=== PATIENT | female | born 1975 | race American Indian/Alaskan Native ===

== ENCOUNTER 2017-10-30 11:31 | Emergency (ER) | payer MEDICAID ==
[2017-10-30 14:13] LABS: Basophils % (Auto) 0.4 % (0.0-1.8); Eosinophils % (Auto) 0.9 % (0.0-4.3); Hemoglobin 13.2 gm/dl (10.1-14.3); Lymphocytes # (Auto) 1.6 K/mm3 (1.2-5.4); Lymphocytes % (Auto) 33.6 % (13.4-35.0); Mean Corpuscular HGB Conc 33 % (30-34); Mean Corpuscular Hemoglobin 29 pg (28-32); Mean Corpuscular Volume 90 fl (79-97); Monocytes # (Auto) 0.4 K/mm3 (0.0-0.8); Monocytes % (Auto) 7.7 % (0.0-7.3); Platelet Count 210 K/mm3 (140-440); Red Blood Count 4.48 M/mm3 (3.65-5.03); Red Cell Distribution Width 13.6 % (13.2-15.2)
[2017-10-30 14:18] LABS: HCG Qualitative,Urine Negative (Negative)
--- NOTE | 2017-10-30 14:19 | Emergency Department Report ---
- General Chief complaint: Weakness Stated complaint: CHEST PAIN, WEAKNESS Time Seen by Provider: 10/30/17 14:10 Source: patient Mode of arrival: Ambulatory Limitations: No Limitations - History of Present Illness Initial comments: History of lupus with history of fibromyalgia and history of fibroids with prabhu metrorrhagia here with evaluation generalized weakness FOR WEEKS POSSIBLY GETTING WORSE WITH INTERMITTENT CHEST PAINS FOR 8 MONTHS nor exertional symptoms. No tearing pain no cough or fever pain or swelling no no history DVT or PE pain or swelling here for evaluation of intermittent left-sided reproducible chest pain for a months and feeling weak all over for several weeks no headache no stiff neck no fever no cough no abdominal complaints of nausea vomiting or diarrhea no dizziness no syncope no numbness or weakness no gait disturbancesure no speech orsite disturbance -: Gradual, days(s), week(s), month(s) Location: generalized Severity: mild, moderate Consistency: intermittent Associated Symptoms: denies other symptoms, chest pain, myalgias. denies: confusion, dark stools, diaphoresis, dysuria, easy bruising, fever/chills, headaches, loss of appetite, nausea/vomiting, rash, shortness of breath, syncope - Related Data Home Medications Medication Instructions Recorded Confirmed Last Taken Levothyroxine [Synthroid] 50 mcg PO QAM 10/25/13 10/25/13 Unknown Previous Rx's Medication Instructions Recorded Last Taken Type Morphine [Morphine TAB] 15 mg PO Q4HR PRN #30 tablet 10/25/13 Unknown Rx Benzonatate [Tessalon Perles] 100 mg PO Q8HR PRN #15 capsule 06/10/14 Unknown Rx Levofloxacin [Levaquin] 750 mg PO QDAY #7 tablet 06/10/14 Unknown Rx Ondansetron [Zofran Odt] 8 mg PO Q4-6H PRN #15 tab.rapdis 06/10/14 Unknown Rx Amoxicillin [Amoxicillin TAB] 875 mg PO BID #14 tablet 02/18/15 Unknown Rx Fluticasone [Flonase] 1 spray NS QDAY #1 bottle 02/18/15 Unknown Rx guaiFENesin/CODEINE [Robitussin AC] 10 ml PO QHS PRN #50 ml 02/18/15 Unknown Rx predniSONE [Deltasone] 20 mg PO QAM #6 tab 02/18/15 Unknown Rx Ibuprofen [Motrin] 400 mg PO Q8H PRN #15 tablet 10/30/17 Unknown Rx Prednisone 50 mg PO DAILY #5 tablet 10/30/17 Unknown Rx Allergies Allergy/AdvReac Type Severity Reaction Status Date / Time iodine Allergy Angioedema Verified 02/18/15 15:40 latex Allergy Hives Verified 02/18/15 15:40 shellfish derived Allergy Angioedema Verified 02/18/15 15:40 ED Review of Systems ROS: Stated complaint: CHEST PAIN, WEAKNESS Other details as noted in HPI Comment: All other systems reviewed and negative Constitutional: denies: diaphoresis, fever, malaise Eyes: denies: eye discharge, vision change ENT: denies: dental pain, hearing loss, epistaxis Respiratory: denies: shortness of breath, SOB with exertion, SOB at rest, stridor Cardiovascular: chest pain. denies: palpitations, dyspnea on exertion, orthopnea, edema, syncope, paroxysmal nocturnal dyspnea Gastrointestinal: denies: abdominal pain, nausea, vomiting, diarrhea, constipation, hematemesis, melena, hematochezia Genitourinary: denies: frequency, hematuria, discharge Musculoskeletal: arthralgia, myalgia. denies: joint swelling Neurological: weakness. denies: headache, numbness, paresthesias, confusion, abnormal gait, vertigo Hematological/Lymphatic: denies: easy bruising, swollen glands ED Past Medical Hx - Past Medical History Previous Medical History?: Yes Additional medical history: fibramyalgia. lupus. anemia - Surgical History Past Surgical History?: Yes Additional Surgical History: fibroid embolization - Social History Smoking Status: Never Smoker Substance Use Type: Prescribed - Medications Home Medications: Home Medications Medication Instructions Recorded Confirmed Last Taken Type Levothyroxine [Synthroid] 50 mcg PO QAM 10/25/13 10/25/13 Unknown History Morphine [Morphine TAB] 15 mg PO Q4HR PRN #30 tablet 10/25/13 Unknown Rx Benzonatate [Tessalon Perles] 100 mg PO Q8HR PRN #15 capsule 06/10/14 Unknown Rx Levofloxacin [Levaquin] 750 mg PO QDAY #7 tablet 06/10/14 Unknown Rx Ondansetron [Zofran Odt] 8 mg PO Q4-6H PRN #15 tab.rapdis 06/10/14 Unknown Rx Amoxicillin [Amoxicillin TAB] 875 mg PO BID #14 tablet 02/18/15 Unknown Rx Fluticasone [Flonase] 1 spray NS QDAY #1 bottle 02/18/15 Unknown Rx guaiFENesin/CODEINE [Robitussin AC] 10 ml PO QHS PRN #50 ml 02/18/15 Unknown Rx predniSONE [Deltasone] 20 mg PO QAM #6 tab 02/18/15 Unknown Rx Ibuprofen [Motrin] 400 mg PO Q8H PRN #15 tablet 10/30/17 Unknown Rx Prednisone 50 mg PO DAILY #5 tablet 10/30/17 Unknown Rx ED Physical Exam - General Limitations: No Limitations General appearance: alert - Head Head exam: Present: atraumatic, normocephalic - Eye Eye exam: Present: PERRL, EOMI - ENT ENT exam: Present: normal exam, normal orophraynx - Neck Neck exam: Present: normal inspection. Absent: tenderness, meningismus - Respiratory Respiratory exam: Present: normal lung sounds bilaterally. Absent: respiratory distress, wheezes, rales, rhonchi, stridor, chest wall tenderness, accessory muscle use, decreased breath sounds, prolonged expiratory - Cardiovascular Cardiovascular Exam: Present: regular rate, normal rhythm, normal heart sounds. Absent: rubs, gallop - GI/Abdominal GI/Abdominal exam: Present: soft. Absent: distended, tenderness, guarding, rebound, rigid, mass, pulsatile mass - Extremities Exam Extremities exam: Present: normal inspection, full ROM, normal capillary refill. Absent: tenderness, pedal edema, joint swelling, calf tenderness - Back Exam Back exam: Present: normal inspection. Absent: CVA tenderness (L), muscle spasm , paraspinal tenderness, vertebral tenderness - Neurological Exam Neurological exam: Present: alert, oriented X3, CN II-XII intact, normal gait. Absent: motor sensory deficit - Psychiatric Psychiatric exam: Present: normal affect - Skin Skin exam: Present: warm - Assessment Assessment Interval: Baseline - Level of Consciousness 1a. Level of Consciousness: alert - LOC Questions 1b. LOC Questions: answers correctly - LOC Command 1c. LOC Commands: performs tasks correctly - Best Gaze 2. Best Gaze: normal - Visual 3. Visual: no visual loss - Facial Palsy 4. Facial Palsy: normal symmetrical movement - Motor Arm 5b. Motor Arm Right: no drift 5a. Motor Arm Left: no drift - Motor Leg 6a. Motor Leg Left: no drift 6b. Motor Leg Right: no drift - Limb Ataxia 7. Limb Ataxia: absent - Sensory 8. Sensory: normal - Best Language 9. Best Language: no aphasia - Dysarthria 10. Dysarthria: normal - Extinction and Inattention 11. Extinction/Inattention: no abnormality - Scoring Total Score: 0 Stroke Severity: No Stroke Symptoms ED Course Vital Signs 10/30/17 10/30/17 12:05 15:17 Temperature 98.6 F Pulse Rate 74 Respiratory 18 18 Rate Blood Pressure 129/78 O2 Sat by Pulse 98 Oximetry ED Medical Decision Making - Lab Data Result diagrams: 10/30/17 13:58 10/30/17 13:58 - EKG Data -: EKG Interpreted by Ia EKG shows normal: sinus rhythm - EKG Data Interpretation: nonspecific ST-T wave gino 10/30/17 15:25 ischemic changenone acute - Radiology Data Radiology results: report reviewed - Medical Decision Making Laboratory studies unremarkable H&H was normal patient is not chest x- ray is unremarkable troponin is negative, patient says symptoms off and on for weeks EKG was nondiagnostic patient will be discharged with follow-up with her regular doctors for further management of her fibromyalgia and lupus no acute emergent process is identified at this time that would require further evaluation or management such as admission or further testing she is therefore stable for outpatient follow-up;pulses=b, lungs cta, no fever no cough denied any typical mosquito bites denies any headache or stiff neck no rash or photophobia abdomen is soft and nontender Critical care attestation.: If time is entered above; I have spent that time in minutes in the direct care of this critically ill patient, excluding procedure time. ED Disposition Clinical Impression: Weakness, Atypical chest pain Disposition: [id number] TO HOME OR SELFCARE Is pt being admited?: No Condition: Stable Instructions: Chest Pain (ED), Weakness (ED), Fibromyalgia (ED) Additional Instructions: See the doctor listed return if new or alarming symptoms Prescriptions: Ibuprofen [Motrin] 400 mg PO Q8H PRN #15 tablet PRN Reason: Pain, Moderate (4-6) Prednisone 50 mg PO DAILY #5 tablet Referrals: ANA VÁSQUEZ MD [Primary Care Provider] - 3-5 Days Time of Disposition: 15:32
[2017-10-30 14:21] LABS: Bilirubin,Urine NEG (Negative); Blood,Urine NEG (Negative); Color,Urine Yellow (Yellow); Mucus,Urine FEW /HPF; Protein,Urine <15 mg/dL mg/dL (Negative)
[2017-10-30] MEDS ORDERED: TORADOL IM ONE (14:22)
[2017-10-30 14:41] LABS: Alanine Aminotransferase 14 units/L (7-56); BUN/Creatinine Ratio 13; Blood Urea Nitrogen 9 mg/dL (7-17); Calcium 9.3 mg/dL (8.4-10.2); Hemolysis Index 2
--- NOTE | 2017-10-30 15:18 | XRay Report ---
CHEST 2 VIEWS INDICATION: Chest pain. Sickle cell. COMPARISON: 06/10/2014. FINDINGS: PA and lateral chest radiographs demonstrate stable cardiomediastinal silhouette. Clear lungs. Intact bones. CONCLUSION: No acute disease in the chest. Thank you for the opportunity to participate in this patient's care.
[2017-10-30 15:47] VITALS: BP 117/76
== END 2017-10-30 15:46 | disposition home or self-care (01) ==
LOC: ED 11:31
DX: R53.1 Weakness (principal); R07.89 Other chest pain
CPT/HCPCS: 36415; 71046; 80053; 81001; 81025; 84484; 85025; 93005; 93010; 96372; 99284; J1885

== ENCOUNTER 2018-05-24 22:23 | Emergency (ER) | payer MEDICAID ==
--- NOTE | 2018-05-25 00:38 | Emergency Department Report ---
HPI - General Chief Complaint: Earache Time Seen by Provider: 05/24/18 23:41 - HPI HPI: This is 43-year-old female here complaining of bilateral ear pain that is worse on the left assessment ongoing since March. She states that it with her left ear in March and she was given amoxicillin. She states that she got sick with nausea and vomiting while on amoxicillin but finished it. Patient said she went back to ER in [place] because her ear was not better and was given clindamycin and assist that antibiotic. She is coming in tonight because now her right ear is starting to throb and her left ear is no better. Denies any fever or chills. Denies any drainage from the ear. She reports that although she does not have any fever today she has been having fever on-and-off and have some sinus issues on top of that. Reported that her pain is 8 out of 10 2 years, throbbing. Ocki-mus-elshpsb medication is not helping. Patient has multiple problems to include fibromyalgia, lupus, anemia, hypoglycemia. Denies any headache or neck pain or stiffness. Denies any cough, shortness of breath or chest pain. She reports nasal congestion and runny nose over the last couple weeks. ED Past Medical Hx - Past Medical History Previous Medical History?: Yes Hx Headaches / Migraines: Yes Additional medical history: fibramyalgia. lupus. anemia. Hypoglycemia - Surgical History Past Surgical History?: Yes Additional Surgical History: fibroid embolization - Family History Family history: hypertension - Social History Smoking Status: Never Smoker Substance Use Type: None - Medications Home Medications: Home Medications Medication Instructions Recorded Confirmed Last Taken Type Levothyroxine [Synthroid] 50 mcg PO QAM 10/25/13 10/25/13 Unknown History Morphine [Morphine TAB] 15 mg PO Q4HR PRN #30 tablet 10/25/13 Unknown Rx Benzonatate [Tessalon Perles] 100 mg PO Q8HR PRN #15 capsule 06/10/14 Unknown Rx Ondansetron [Zofran Odt] 8 mg PO Q4-6H PRN #15 tab.rapdis 06/10/14 Unknown Rx levoFLOXacin [Levaquin] 750 mg PO QDAY #7 tablet 06/10/14 Unknown Rx Amoxicillin [Amoxicillin TAB] 875 mg PO BID #14 tablet 02/18/15 Unknown Rx Fluticasone [Flonase] 1 spray NS QDAY #1 bottle 02/18/15 Unknown Rx guaiFENesin/CODEINE [Robitussin AC] 10 ml PO QHS PRN #50 ml 02/18/15 Unknown Rx predniSONE [Deltasone] 20 mg PO QAM #6 tab 02/18/15 Unknown Rx Ibuprofen [Motrin] 400 mg PO Q8H PRN #15 tablet 10/30/17 Unknown Rx predniSONE [Prednisone] 50 mg PO DAILY #5 tablet 10/30/17 Unknown Rx Azithromycin [Zithromax Z-STEFANO] 250 mg PO DAILY 5 Days #1 pkg 05/25/18 Unknown Rx Cetirizine HCl [ZyrTEC] 10 mg PO QAM 14 Days #14 capsule 05/25/18 Unknown Rx Cipro/Dexameth 0.3/0.1% [Ciprodex 4 drops OT BID 7 Days #1 bottle 05/25/18 Unknown Rx OTIC] Fluticasone [Flonase] 1 spray NS QDAY 14 Days #1 bottle 05/25/18 Unknown Rx Promethazine [Phenergan TAB] 25 mg PO Q6HR PRN #12 tab 05/25/18 Unknown Rx Tolnaftate [Blis-To-Amber] 4 drops OTIC BID 14 Days #1 05/25/18 Unknown Rx solution traMADol [Ultram 50 MG tab] 50 mg PO Q6HR PRN #12 tablet 05/25/18 Unknown Rx ED Review of Systems ROS: Stated complaint: BILATERAL EAR PAIN Other details as noted in HPI Constitutional: chills, fever Eyes: denies: eye pain, eye discharge ENT: ear pain, congestion. denies: throat pain, dental pain, hearing loss, epistaxis Respiratory: denies: cough, shortness of breath, SOB with exertion, SOB at rest, wheezing Cardiovascular: denies: chest pain, palpitations, dyspnea on exertion, orthopnea, edema, syncope Gastrointestinal: denies: nausea, vomiting Musculoskeletal: denies: back pain, joint swelling, arthralgia, myalgia Skin: denies: rash Neurological: denies: headache, numbness, paresthesias, confusion, abnormal gait, vertigo Physical Exam - Physical Exam Vital Signs: Vital Signs 05/24/18 22:36 Temperature 99.0 F Pulse Rate 82 Respiratory 20 Rate Blood Pressure 119/82 O2 Sat by Pulse 100 Oximetry General: This is a 43-year-old female well-nourished well-developed in no acute distress. Physical Exam: Head: Normocephalic atraumatic Ears:BIateral TM congested without erythema and loss of bony landmarks. Chet EAC with red, erosive, white patchy area of erythema and cheesy-like material. Bilateral tragus and is tender to palpate and left is worse than right.. No mastoid bone tenderness. Mouth: Moist, no pharyngeal erythema or exudate . No tonsillar exudates or erythema. UVULA midline and oral airways patent. No peritonsillar abscess Neck: Nontender to palpate, supple, normal range of motion. No adenopathy. No c- spine tenderness. Nose: Bilateral nasal mucosa congested/erythema with clear drainage. Maxillary and frontal sinuses non- tender to palpate. Eyes: Bilateral Sclerae and conjunctiva without injection. Bilateral pupils equal and reactive to light. Bilateral lids are normal. Normal accommodation.BEOMI Lungs: Clear to auscultate bilaterally, no rhonchi wheezes or rales. Normal work of breathing and no chest wall tenderness CV: S1, S2. Regular rate and rhythm negative murmur. Capillary refill is less than 3 seconds Extremity: No clubbing, cyanosis or edema. +2 pulses in all extremities and no neurovascular compromise Skin: Clean dry and intact, no rashes or lesions Psych: Normal mood and behavior ED Course Vital Signs 05/24/18 22:36 Temperature 99.0 F Pulse Rate 82 Respiratory 20 Rate Blood Pressure 119/82 O2 Sat by Pulse 100 Oximetry - Reevaluation(s) Reevaluation #1: 05/25/18 01:39 Patient and was given hydrocodone 5/325 mg 2 tablets by mouth she says she is allergic to oxycodone but only Percocet she has taken hydrocodone in the past. She says she got nauseous from oxycodone. She was given Zofran 8 mg ODT and Benadryl 50 mg by mouth in emergency room. Pain is better. ED Medical Decision Making - Medical Decision Making This is a 43-year-old female here report that she has been having bilateral ear pain since March and she had 2 courses of antibiotics including amoxicillin and clindamycin at [facility] without any relief of pain. Physical finding for fungal infection in both ears with left ear greater than right ear appears to be superimposed fungal infection on bacterial infection. I discussed diagnosis and treatment plan the patient and told her that she is to follow up with ear nose and throat for corrective measure. Patient was given hydrocodone 5/325 2 tablets for earache at 9/10 and now pain is better. She is also given Benadryl 50 mg by mouth for prevention of itching and from narcotic and Zofran 8 mg ODT for prevention of nausea. Her vital signs are stable she is afebrile and in no acute distress. Patient discharged home with medication to treat otitis externa bacterial and fungal. She is also given pain medication and referred to ear nose and throat. She voiced understanding. Patient discharged home on azithromycin to cover upper respiratory infection to spin ongoing, Zyrtec and Flonase, Tinactin solution to cover fungal otitis externa and Ciprodex to cover bacterial otitis externa. She is also placed on Ultram for pain and Phenergan for nausea. She was given 2 ear nose and throat doctor to follow-up with. She voiced understanding of need to follow up. Patient discharged home in stable condition with her family. - Differential Diagnosis otitis external fungal vs bacterial, otitis media, URI viral VS bacterial Critical care attestation.: If time is entered above; I have spent that time in minutes in the direct care of this critically ill patient, excluding procedure time. ED Disposition Clinical Impression: Otitis externa in mycoses, Otalgia of both ears, Bacterial otitis externa Upper respiratory infection Qualifiers: URI type: unspecified URI Qualified Code(s): J06.9 - Acute upper respiratory infection, unspecified Disposition: TO HOME OR SELFCARE Is pt being admited?: No Does the pt Need Aspirin: No Condition: Stable Instructions: Otitis Externa (ED), Upper Respiratory Infection (ED), Earache (ED) Additional Instructions: Please follow up at ear nose and throat for bacterial infection with superimposed fungal infection of ear canals Take antibiotic as prescribed. Instilled 4 drops each antibiotic which is antifungal and antibacterial 3 times a day 7 days. Please instill antifungal antibiotic first and then 2 hours later and still antibacterial antibiotic. If your condition worsens and you experience loss of hearing he will need to go to the ear nose and throat doctor [place] and if he cannot get to 1 please return to the emergency room See discharge instruction for ear nose and throat doctor and please see them by 05/27/2018 Please avoid getting fluid in your ears. Take Ultram for pain but please do not drive or operate heavy machinery while taking this medication and take Phenergan for nausea and avoid driving due to side effect of drowsiness. Prescriptions: Azithromycin [Zithromax Z-STEFANO] 250 mg PO DAILY 5 Days #1 pkg Cetirizine HCl [ZyrTEC] 10 mg PO QAM 14 Days #14 capsule Cipro/Dexameth 0.3/0.1% [Ciprodex OTIC] 4 drops OT BID 7 Days #1 bottle Fluticasone [Flonase] 1 spray NS QDAY 14 Days #1 bottle Promethazine [Phenergan TAB] 25 mg PO Q6HR PRN #12 tab PRN Reason: Nausea Tolnaftate [Blis-To-Amber] 4 drops OTIC BID 14 Days #1 solution traMADol [Ultram 50 MG tab] 50 mg PO Q6HR PRN #12 tablet PRN Reason: Pain Referrals: follow-up with ear nose and throat, Dr. Gordillo [Other] - 05/27/18 ( Dr. Gordillo is the ENT doctor. Please call on 05/26/2018 to schedule an appointment for 05/27/2018 and let them know that you are referred by [facility]. [address] [address] ) MIHAI CRAVEN MD [Primary Care Provider] - 2-3 Days KYRA BECK MD [Staff Physician] - 05/27/18 Forms: Accompanied Note, Work/School Release Form(ED)
[2018-05-25] MEDS ORDERED: NORCO 5/325 PO ONE (00:40)
[2018-05-25] MEDS ORDERED: ZOFRAN ODT PO ONE (00:40)
[2018-05-25] MEDS ORDERED: BENADRYL PO ONE (00:42)
[2018-05-25 14:49] VITALS: BP 112/62
== END 2018-05-25 02:20 | disposition home or self-care (01) ==
LOC: ED 22:23
DX: J06.9 Acute upper respiratory infection, unspecified (principal); B36.9 Superficial mycosis, unspecified; H62.43 Otitis externa in other diseases classified elsewhere, bilateral; G43.909 Migraine, unspecified, not intractable, without status migrainosus; Z88.6 Allergy status to analgesic agent; Z91.013 Allergy to seafood; Z91.040 Latex allergy status; Z88.4 Allergy status to anesthetic agent
CPT/HCPCS: 99282; Q0162

== ENCOUNTER 2019-09-02 11:00 | Observation (INO) | payer MEDICAID ==
[2019-08-31 12:51] LABS: Basophils % (Auto) 0.4 % (0.0-1.8); Eosinophils # (Auto) 0.1 K/mm3 (0.0-0.4); Eosinophils % (Auto) 1.2 % (0.0-4.3); Hemoglobin 14.4 gm/dl (10.1-14.3); Lymphocytes % (Auto) 40.7 % (13.4-35.0); Mean Corpuscular HGB Conc 35 % (30-34); Mean Corpuscular Volume 88 fl (79-97); Monocytes # (Auto) 0.4 K/mm3 (0.0-0.8); Monocytes % (Auto) 8.1 % (0.0-7.3); Platelet Count 244 K/mm3 (140-440); Red Blood Count 4.67 M/mm3 (3.65-5.03); Red Cell Distribution Width 13.1 % (13.2-15.2)
--- NOTE | 2019-08-31 13:18 | Anesthesia Consultation ---
Anesthesia Consult and Med Hx Date of service: 09/02/19 - Airway Anesthetic Teeth Evaluation: Good ROM Head & Neck: Adequate Mental/Hyoid Distance: Adequate Mallampati Class: Class I Intubation Access Assessment: Good - Pulmonary Exam CTA: Yes - Cardiac Exam Cardiac Exam: RRR - Pre-Operative Health Status ASA Pre-Surgery Classification: ASA2 Proposed Anesthetic Plan: General Nerve Block: TAP - Pulmonary Hx Smoking: No Hx Respiratory Symptoms: No Hx Sleep Apnea: No - Cardiovascular System Hx Hypertension: No Hx Heart Attack/AMI: No Hx Percutaneous Transluminal Coronary Angioplasty (PTCA): No - Central Nervous System Hx Neuromuscular Disorder: No (fibromyalgia) CVA: No - Gastrointestinal Hx Gastroesophageal Reflux Disease: No - Endocrine Hx Renal Disease: No Hx Liver Disease: No Hx Insulin Dependent Diabetes: No Hx Non-Insulin Dependent Diabetes: No Hx Hypothyroidism: Yes - Hematic Hx Anemia: Yes - Other Systems Hx Obesity: No - Additional Comments Anesthesia Medical History Comments: Hx SLE, no steroid or immunosuppresant therapy. No hx anesthetic complications. Patient is [employer]hova's [employer] and refuses blood products.
[2019-08-31 13:27] LABS: BUN/Creatinine Ratio 11; Blood Urea Nitrogen 9 mg/dL (7-17); Calcium 9.8 mg/dL (8.4-10.2); Hemolysis Index 6
--- NOTE | 2019-09-01 15:53 | History and Physical Report ---
History of Present Illness Date of examination: 09/01/19 Date of admission: 09/02/2019 Chief complaint: uterine fibroids History of present illness: 44y/o with uterine fibroids. The patient reports having heavy vaginal bleeding and pain with menses. Pelvic ultrasound demonstrated uterine fibroids. The patient has had a UFE in the past without improvement in her symptoms. She has elected for definitive surgical management. Past History Past Medical History: fibromyalgia, other (hyperthyroidism) Past Surgical History: other (tubal ligation; UFE) [facility] SPECIALIST History: fibroids, herpes Social history: single - Obstetrical History : 2 Para: 2 Hx # Term Pregnancies: 2 Number of Pregnancies: 0 Spontaneous Abortions: 0 Induced : 0 Number of Living Children: 2 Medications and Allergies Allergies Allergy/AdvReac Type Severity Reaction Status Date / Time acetaminophen [From Percocet] Allergy Extreme N&V Verified 08/26/19 12:53 amoxicillin Allergy Abdominal Verified 08/26/19 12:55 cramping iodine Allergy Angioedema Verified 02/18/15 15:40 latex Allergy Hives Verified 02/18/15 15:40 oxycodone [From Percocet] Allergy Extreme N&V Verified 08/26/19 12:54 shellfish derived Allergy Angioedema Verified 02/18/15 15:40 Home Medications Medication Instructions Recorded Confirmed Last Taken Type Levothyroxine [Synthroid] 50 mcg PO QAM 10/25/13 08/26/19 Unknown History Cetirizine HCl [ZyrTEC] 10 mg PO QAM 14 Days #14 capsule 05/25/18 08/26/19 Unknown Rx Fluticasone [Flonase] 1 spray NS QDAY 14 Days #1 bottle 05/25/18 08/26/19 Unknown Rx Ascorbic Acid [Vitamin C] 1,000 mg PO DAILY 08/26/19 08/26/19 Unknown History Calcium Carbonate [Calcium 600MG 600 mg PO DAILY 08/26/19 08/26/19 Unknown History TAB] Iron [Iron 18 MG TAB] 18 mg PO QDAY 08/26/19 08/26/19 Unknown History Naproxen 500 mg PO BID PRN 08/26/19 08/26/19 Unknown History Active Meds: Active Medications Celecoxib (Celebrex) 200 mg PO PREOP NR Stop: 09/02/19 23:59 Fentanyl (Sublimaze) 100 mcg IV ONCE PRN PRN Reason: sedation for nerve block Gabapentin (Gabapentin) 600 mg PO PREOP NR Stop: 09/02/19 23:59 Lactated Ringer's (Lactated Ringers) 1,000 mls @ 100 mls/hr IV DIRECT VALENTINE Stop: 09/02/19 23:59 Magnesium Oxide (Mag-Ox) 400 mg PO PREOP VALENTINE Midazolam HCl (Versed) 2 mg IV PREOP NR Stop: 09/02/19 23:55 Scopolamine (Transderm-Scop) 1 each TD PREOP NR Stop: 09/02/19 23:59 Review of Systems All systems: negative Genitourinary: vaginal bleeding, pelvic pain - Vital Signs Vital signs: Vital Signs Temp Pulse Resp BP Pulse Ox 98.6 F 94 H 20 117/76 99 08/31/19 11:25 08/31/19 11:25 08/31/19 11:25 08/31/19 11:25 08/31/19 11:25 Temp Pulse Resp BP Pulse Ox 98.6 F 94 H 20 117/76 99 08/31/19 11:25 08/31/19 11:25 08/31/19 11:25 08/31/19 11:25 08/31/19 11:25 - Physical Exam Breasts: Positive: deferred Cardiovascular: Regular rate Lungs: Positive: Clear to auscultation Abdomen: Positive: normal appearance Results Result Diagrams: 08/31/19 12:30 08/31/19 11:00 All other labs normal. Assessment and Plan - Patient Problems (1) Leiomyoma Status: Acute Plan to address problem: scheduled for a robotic hysterectomy and bilateral salpingectomy (2) Dysmenorrhea Status: Acute (3) Dysfunctional uterine bleeding Status: Acute
--- NOTE | 2019-09-02 07:24 | Anesthesia Day of Surgery ---
Anesthesia Day of Surgery - Day of Surgery Patient Examined: Yes Patient H&P Reviewed: Yes Patient is NPO: Yes
--- NOTE | 2019-09-02 09:55 | Operative Report ---
Operative Report Operative Report: Date of surgery: September 02, 2019 Preoperative diagnoses: Symptomatic uterine fibroids; menorrhagia Postoperative diagnoses: Same as above Procedure: Robotic hysterectomy; bilateral salpingectomy; right ovarian cystectomy Surgeon: Diana Moncada M.D. Metal Building Assembler: Temitope Hayden Anesthesia: Gen. endotracheal anesthesia Estimated blood loss: 50 mL Pathology: Uterus, cervix, leiomyomas, bilateral tubes, right ovarian cyst Indication: 44-year-old -0-0-2 with a history of symptomatic uterine f ibroids. The patient elected to undergo definitive surgical management. Procedure: The patient was taken to the operating room and given general endotracheal anesthesia without complication. She is prepped and draped in a normal sterile fashion. A bivalve speculum was placed in the patient's vagina and a single- tooth tenaculum placed on the anterior lip of the cervix. The uterus was melly nded with the uterine sound. A Pro Stream + uterine manipulator was placed in the bivalve speculum was then removed. Attention was then turned to the patient's abdomen where a millimeter supra umbilical skin incision was then made. A Veress needle was placed and peritoneal entry was verified water-filled syringe. Insufflation of the peritoneal cavity was performed with CO2 gas. The 12 mm trocar was then placed under direct visualization. An additional 8 mm trocar was placed on the patient's left and right lateral side just opposite of the supraumbilical trocar. An additional 8 mm right lateral trocar was then placed as the accessory port. The supraumbilical 12 mm trocar site was closed with the Shorty King device and 0-vicryl suture. The patient was then placed in steep Trendelenburg. The da Cynthia robot was then engaged. A fenestrated forcep was placed in arm 2 and a vessel sealer was placed in arm 1. General survey of the abdomen and pelvis revealed an enlarged fibroid uterus. There was evidence of a right hemorrhagic cyst on the ovary. The surgeon then transferred to the surgical console. The mesosalpinx was then isolated on the right. The vessel sealer was used to coagulate the mesosalpinx which was then transected. The tube was transected from the ovary. The tubo-ovarian ligament was then coagulated and transected. The round ligament was then coagulated and transected also. The vesicouterine peritoneum was then entered from the patient's right side. The uterine vessels were then coagulated with the vessel sealer. The vessels were then transected . Attention was then turned to the patient's left side where the tubo-ovarian ligament and mesosalpinx were again isolated coagulated and transected. The vesical peritoneum was then entered from the left and joined in the midline. Peritoneum was reflected off of the lower uterine segment. Uterine vessels were then coagulated and then transected. The blood supply to the uterus was adequately contained, a posterior colpotomy was made. The V care ring was visualized. Posterior colpotomy was created with the monopolar scissors. The incision was continued circumferentially until anterior colpotomy was made. The cervix and uterus were amputated from the vaginal cuff. A right ovarian cystectomy was performed with the monopolar scissors. The tissue was passed through the 8 mm accessory port. The uterus was then removed along with the tubes bilaterally through the vagina and a warm laparotomy sponge was placed and maintain the pneumoperitoneum. The vaginal cuff was then closed in a running fashion with V lock suture. Irrigation of the pelvis was performed. Hemoblast was applied to the incision. Surgicel was placed over the ovarian cortex of the right ovary. The skin was then reapproximated with 4-0 Monocryl. The tissue was sent to pathology which included the cervix, bilateral tubes, right ovarian cyst and uterus. The patient was then successfully extubated. She was then taken to the recovery room in stable condition. All sponge laps and needle counts were correct x2.
[~2019-09-02 11:00] MED LIST: BUPIVACAINE-EPINEPHRINE/PF 0.25%-1:200,000 (30 ML) VIAL INFILTRATI ONE; CELECOXIB 200 MG CAP PO NR; GABAPENTIN 300 MG CAP PO NR; GENTAMICIN 80 MG in SODIUM CHLORIDE 0.9% 100 ML IV ONE; GENTAMICIN/NS 80 MG/100 ML 100 ML IV NR; GENTAMICIN/NS 80 MG/100 ML 100 ML IV ONE; GLYCOPYRROLATE 0.4 MG/2 ML INJ ONE; HYDROmorphone 1 MG/1 ML INJ IV PRN; HYDROmorphone 1 MG/1 ML INJ ONE; LACTATED RINGERS 1,000 ML IV SCH; LIDOCAINE MPF (2%) 20 MG/1 ML VIAL 5 ML ONE; MAGNESIUM OXIDE 400 MG TAB PO SCH; MIDAZOLAM 2 MG/2 ML INJ IV NR; NEOMY 40 MG/POLYMYXIN B 200,000 UNITS/ML (GU) AMPULE IR ONE; NEOSTIGMINE 10MG/10 ML INJ MDV ONE; ONDANSETRON 4 MG/2 ML INJ ONE; PHENYLEPHRINE/NS 1,000 MCG/10 ML SYRINGE (OR USE) IV ONE; ROCURONIUM 50 MG/5 ML INJ IV ONE; SCOPOLAMINE TRANSDERMAL PATCH 72 HR TD NR; SODIUM CHLORIDE 0.9% IRR 1,500 ML BOTTLE IR ONE; SODIUM CHLORIDE 0.9% IRRIG SOLN 2000 ML IR ONE; SUCCINYLCHOLINE CHLORIDE 200 MG/10 ML INJ MDV ONE; SUGAMMADEX SODIUM 200 MG/2 ML VIAL IV ONE; fentaNYL 100 MCG/2 ML INJ IV PRN; fentaNYL 250 MCG/5 ML INJ ONE; propofoL 200 MG/20 ML VIAL IV ONE
[2019-09-02] MEDS ORDERED: LACTATED RINGERS 1,000 ML IV ONE (12:05)
[2019-09-02 12:39] LABS: Basophils % (Auto) 0.3 % (0.0-1.8); Eosinophils % (Auto) 0.3 % (0.0-4.3); Hematocrit 32.3 % (30.3-42.9); Hemoglobin 10.9 gm/dl (10.1-14.3); Lymphocytes # (Auto) 1.8 K/mm3 (1.2-5.4); Mean Corpuscular HGB Conc 34 % (30-34); Mean Corpuscular Volume 89 fl (79-97); Monocytes # (Auto) 0.4 K/mm3 (0.0-0.8); Monocytes % (Auto) 7.3 % (0.0-7.3); Platelet Count 173 K/mm3 (140-440); Red Blood Count 3.63 M/mm3 (3.65-5.03); Red Cell Distribution Width 12.9 % (13.2-15.2)
[2019-09-02] MEDS ORDERED: ONDANSETRON 4 MG/2 ML INJ IV ONE (12:43)
[2019-09-02] MEDS ORDERED: HYDROmorphone 2 MG TAB PO PRN (13:11)
[2019-09-02] MEDS ORDERED: IBUPROFEN 800 MG TAB PO PRN (13:11)
--- NOTE | 2019-09-02 16:25 | Post Anesthesia Evaluation ---
- Post Anesthesia Evaluation Patient Participated: Yes Airway Patent: Yes Stable Respiratory Function: Yes Nausea/Vomiting: No Temp > 96.8F: Yes Pain Manageable: Yes Adequeate Hydration: Yes Anesthesia Complications: No Other Comments: Hypotensive initially in PACU w/ boreline tachycardia and decreased UOP. Awake, alert, pain well controlled, soft abdomen. CBC showed drop in Hb from 14 to 10. Fluid bolus administerred with improvement closer to patient baseline.
[2019-09-02] MEDS: D5W/LACTATED RINGERS 1,000 ML IV SCH (17:46)
[2019-09-02] MEDS: KETOROLAC 30 MG/1 ML INJ IV PRN (23:01)
[2019-09-03] MEDS: D5W/LACTATED RINGERS 1,000 ML IV SCH (01:31)
[2019-09-03 05:54] LABS: Hemoglobin 11.3 gm/dl (10.1-14.3)
[2019-09-03] MEDS: KETOROLAC 30 MG/1 ML INJ IV PRN (08:09)
--- NOTE | 2019-09-03 10:24 | Progress Note ---
Assessment and Plan - Patient Problems (1) Leiomyoma Current Visit: No Status: Acute (2) Dysmenorrhea Current Visit: No Status: Acute Plan to address problem: routine postop care. consider discharge home today (3) Dysfunctional uterine bleeding Current Visit: No Status: Acute (4) Acute blood loss as cause of postoperative anemia Current Visit: Yes Status: Acute Subjective - Subjective Date of service: 09/03/19 Interval history: Patient states she sat up in the chair yesterday. Slaughter has been removed and patient voided. Tolerating diet Patient reports: appetite normal, voiding normally, pain well controlled Objective - Vital Signs Latest vital signs: Vital Signs Temp Pulse Resp BP BP BP Pulse Ox 09/03/19 08:05 100.5 F H 81 20 107/52 96 09/03/19 05:49 98.5 F 84 16 94/50 100 09/03/19 01:40 98.7 F 83 16 90/57 99 09/02/19 23:31 18 09/02/19 23:01 18 09/02/19 21:17 98.5 F 80 16 91/57 99 09/02/19 16:00 97.5 F L 55 L 20 88/60 09/02/19 14:18 97.7 F 78 15 97/62 09/02/19 14:05 97.7 F 78 15 97/62 98 09/02/19 13:30 97.7 F 80 14 99/61 100 09/02/19 13:25 97.7 F 79 15 97/62 98 09/02/19 13:15 90 15 98/61 100 09/02/19 13:00 90 15 92/58 100 09/02/19 12:45 89 15 91/52 100 09/02/19 12:30 97.8 F 88 14 94/55 99 09/02/19 12:15 97 H 17 92/56 98 09/02/19 12:00 99 H 12 92/58 100 09/02/19 11:45 92 H 15 90/56 99 09/02/19 11:30 98.2 F 94 H 14 90/56 99 09/02/19 11:15 96 H 15 94/63 97 09/02/19 11:00 96 H 16 103/69 100 09/02/19 10:45 87 17 100/67 100 09/02/19 10:40 83 20 103/69 100 09/02/19 10:35 89 20 107/75 100 09/02/19 10:32 96.9 F L 89 20 119/84 100 Intake and Output 09/02/19 09/03/19 09/03/19 22:59 06:59 14:59 Intake Total 580 1068.75 Output Total 1300 800 200 Balance -720 268.75 -200 Intake: IV 968.75 D5lr 1,000 ml @ 125 mls/ 968.75 hr IV DIRECT VALENTINE Rx#: [id number] Oral 240 Intake, Free Water 340 100 Output: Urine 1300 800 200 Indwelling Catheter 1300 800 Void 200 Other: Total, Intake Amount 120 Total, Output Amount 500 800 200 Voiding Method Indwelling Catheter Toilet # Voids Void 1 Weight 65.771 kg - Exam Abdomen: Present: normal appearance, soft - Labs Labs: Abnormal lab results 09/02/19 Range/Units 12:31 RBC 3.63 L (3.65-5.03) M/mm3 RDW 12.9 L (13.2-15.2) %
--- NOTE | 2019-09-03 10:37 | Discharge Summary ---
Providers - Providers Date of Admission: 09/02/19 13:11 Date of discharge: 09/03/19 Attending physician: STEVE ALEX Primary care physician: MADHU KOWALSKI Hospitalization Reason for admission: other (uterine fibroids) Procedure: other (robotic hysterectomy and bilateral salpingectomy) Discharge diagnosis: other (Uterine fibroids) Hospital course: Patient admitted for robotic hysterectomy. see op note. Postop complicated by drop in h/h likely contributed by iv hydration. Had one temp spike resolved with incentive spirometer use. Condition at discharge: Good Disposition: [id number] TO HOME OR SELFCARE - Discharge Diagnoses (1) Leiomyoma Status: Acute (2) Dysmenorrhea Status: Acute (3) Dysfunctional uterine bleeding Status: Acute (4) Acute blood loss as cause of postoperative anemia Status: Acute Plan - Discharge Medications Prescriptions: Hydromorphone HCl [Dilaudid] 8 mg PO Q8HR PRN #30 tablet PRN Reason: Pain , Severe (7-10) Ibuprofen [Motrin] 800 mg PO Q8HR PRN #60 tablet PRN Reason: Pain, Moderate (4-6) - Provider Discharge Summary Activity: no sex for 6 weeks, no heavy lifting 4 weeks, no strenuous exercise Diet: routine Instructions: routine Additional instructions: [] Smoking cessation referral if applicable(refer to patient education folder for contact #) [] Refer to [facility] Booklet Call your doctor immediately for: * Fever > 100.5 * Heavy vaginal bleeding ( >1 pad per hour) * Severe persistent headache * Shortness of breath * Reddened, hot, painful area to leg or breast * Drainage or odor from incision. * Keep incision clean and dry at all times and follow doctor's instructions regarding bathing/showering schedule followup in 4 weeks - Follow up plan
[2019-09-03 13:05] VITALS: BP 101/56
== END 2019-09-03 11:50 | disposition home or self-care (01) ==
LOC: OR 11:00 → OB 13:11
PROVIDERS: ADMIT Obstetrics & Gynecology; ATTEND Obstetrics & Gynecology
DX: D25.2 Subserosal leiomyoma of uterus (principal); D25.1 Intramural leiomyoma of uterus; D25.0 Submucous leiomyoma of uterus; N93.8 Other specified abnormal uterine and vaginal bleeding; M79.7 Fibromyalgia; D62 Acute posthemorrhagic anemia; N72 Inflammatory disease of cervix uteri; N83.201 Unspecified ovarian cyst, right side
CPT/HCPCS: 36415; 58571; 58662; 64450; 80048; 84703; 85014; 85018; 85025; 88305; 88307; 96374; 96375; 96376; A4217; G0378; J0330; J1170; J1580; J1885; J2250; J2370; J2405; J2704; J2710; J3010; J7120; J7121; S2900; 88309